=== PATIENT | female | born 1975 | race Caucasian/White ===

== ENCOUNTER 2017-03-11 09:16 | Day surgery (SDC) | payer BC ==
[~2017-03-11 09:16] MED LIST: LACTATED RINGERS 1,000 ML IV SCH; NS FLUSH 10 ML PRN IV; SODIUM CHLORIDE FLUSH 3 ML SYR IV PRN
--- OUTSIDE RECORDS SUMMARY | 2017-03-11 09:20 | XMS REPORT | Continuity of Care Document ---
Author Author [facility] Organization [facility] Address Unknown Phone Unavailable Allergies Active Description Code Type Severity Reaction Onset Reported/Identified Relationship to Patient Clinical Status Yes No Known Allergies [id number] N/A N/A Medications Problems Date Dx Coded Attending Type Code Diagnosis Diagnosed By 11/14/2016 W Z01.419 Encntr for cowlman exam (general) (routine) w/o abn findings 11/21/2016 W N63 Breast mass, right 11/21/2016 W Z01.419 Well Woman Visit - Normal 11/21/2016 W Z12.31 Mammogram, screening 2016 W N63 Breast mass, right 12/31/2016 W N63 Breast mass, right 12/31/2016 W Z01.419 Well Woman Visit - Normal 12/31/2016 W Z12.31 Mammogram, screening Procedures Code [place] [id number] SPECIMEN HANDLING OFFICE-LAB 11/14/2016 86533 PREV VISIT NEW AGE 40-64 11/14/2016 [id number] Telephone Call [phone] Telephone Call [phone] Telephone Call Results Encounters ACCT No. Visit Date/Time Discharge Status Pt. Type Provider Facility Loc./Unit Complaint [id number] 12/31/2016 13:00:00 ACT [facility]
--- NOTE | 2017-03-11 10:26 | NUR ---
SEE PAPER CHARTING.
--- NOTE | 2017-03-11 11:38 | Diagnostic Imaging Report ---
INDICATION: PICC placement. 10:17 AM. AVAILABLE COMPARISONS: None. A right PICC is present with the tip in the proximal superior vena cava. The cardiomediastinal silhouette and pulmonary vascularity are normal. No osseous lesion is identified Bilateral breast expanders. IMPRESSION: Right PICC insertion with tip in the superior vena cava region. Dictated by: Dictated on workstation # [id number]
--- NOTE | 2017-03-12 16:14 | PAIN MANAGEMENT ---
Date of note: 03/11/2017 PROCEDURE: PICC line insertion. This is a 41-year-old patient under the care of Dr. Doron Avalos. Informed consent was achieved for a PICC line placement in the right antecubital vein on Ms. Hall. After informed consent the area was prepped with the prep in the kit, was draped off, and using antiseptic technique was localized with Xylocaine 1% a total of 3 mL. After localization, the vein was cannulated x1 with a pass through wire placed and a dilator placed over the pass through wire. The wire was then extracted and the catheter was advanced to 47 cm as measured. This was then locked in place with a locking device. Sterile drape placed over the site and Coban placed over that. Instructions were given to the patient as to the care of the PICC line. Chest x-ray was taken which showed proper placement of the line for the patient. Lines were flushed freely with good blood return prior to and she was released for her chemotherapy to start tomorrow.
== END 2017-03-11 10:19 | disposition home or self-care (01) ==
LOC: ASC 09:16
PROVIDERS: ATTEND Internal Medicine Hematology & Oncology
DX: C50.411 Malignant neoplasm of upper-outer quadrant of right female breast (principal); Z17.0 Estrogen receptor positive status [ER+]
CPT/HCPCS: 71010